=== PATIENT | female | born 1975 | race Caucasian/White ===

== ENCOUNTER 2016-07-28 15:21 | Outpatient (CLI) | payer OTHER ==
[~2016-07-28] VITALS: Ht 160 cm; Wt 80.5 kg
[2016-07-28 15:54] VITALS: BP 128/74; PULSE 70; RESP 16; Ht 160 cm; Wt 80.5 kg
[2016-07-28] MEDS ORDERED: LOSA50TA6 PO (15:54)
[2016-07-28] MEDS ORDERED: DICY10CA60 PO (15:54)
--- NOTE | 2016-07-28 15:55 | PN ---
Date/Time of Note Date/Time of Note DATE: 07/28/16 TIME: 15:55 Outpatient Progress Note Chief Complaint Abdominal pain/hypertension/hyperlipidemia/kidney stones/fibroid uterus HPI Abdominal pain/patient was recently admitted with abdominal pain, patient pain [id number], very minimal, no nausea vomiting, reduce with Bentyl, no fever or chill, no mucus in the stool, no diarrhea, no constipation, Hypertension/no headache or dizziness, no lightheadedness, no local focal weakness, Hyperlipidemia/no xanthoma, on medication, side effect of medication, Kidney stones/history of kidney stone, no fever or chill, no blood in the urine, Uterine fibroids/patient has uterine fibroid, no bleeding, no abdominal pain, no suprapubic distention, Review of Systems Const: No Fever, no chills, no Wt. loss, no Fatigue, normal appetite, no diaphoresis. Eyes: No pain, no discharge, no redness, no visual change, no foreign body. ENT: No pain, no bleeding, no congestion, no sore throat, no dysphagia, no discharge or rhinitis. Lymph: No adenopathy, no tender nodes, no lymphedema. Resp: No SOB, no cough, no sputum, no wheezing, no chest pain. CV: No chest pain, no palpitaions, no RIVER, no PND, no edema. GI: Normal appetite, minimal abdominal pain, no nausea, no vomiting, no diarrhea , no blood, no constipation. : No frequency, no urgency, no dysuria, no hematuria, no flank pain, no discharge, no bleeding. Musc: No bone/joint pain, no back pain, no neck pain, no knee pain, no restricted ROM. Skin: No rash, no skin lesions, no erythema, no laceration, no bruising, no pruritus. Neuro: No OSULLIVAN, no dizziness, no syncope, no seizure, no focal-weakness. Endo: No polyuria, no polydypsia, no dry-skin, no temp-intolerance. Psych: No hallucinations, no depression, no anxiety, no suicidal ideation. Ext: No edema, no pain, no ulcer, no weakness. Physical Exam Vital Signs Date Time Temp Pulse Resp B/P Pulse Ox O2 Delivery O2 Flow Rate FiO2 07/28/16 15:54 98.3 70 16 128/74 98 Room Air General Appearance: A 40 year-old female who appears well-developed, well- nourished, in no acute distress. HEENT: Head normocephalic, atraumatic. Pupils equal, round, reactive to light and accommodate. Sclerae are no jaundice. Nasal turbinates pink without erythema or nasal discharge. Mucous membranes pink and moist without lesions. Oropharynx clear without any exudate or discharge. NECK: Supple. Trachea midline, No thyromegaly, No cervical lymphadenopathy, No mass, No carotid bruits, No JVD, Carotid pulses 2+ bilaterally. PULMONARY: Clear to auscultaion bilaterally, No retractions, Chest expansion symmetric bilaterally, no rales, no ronchi, no dulness on percussion. CARDIAC: Normal SI and S2, Regular rate and rythm, no murmur, gallop, or rub. GASTROINTESTINAL: Abdomen is soft, mild abdominal discomfort, generalized, Non Rigid, No distention, Positive bowel sounds x4 quadrants, Liver normal. SKIN: Warm, dry, no rash, no bruise, no echmosis, no laceration, EXTREMITIES: Bilateral lower extremities normal, no edema, no phlabitus, pulse palpable, no contracture. MUSCULOSKELETAL: Spine Normal, Non-tender, Normal range of motion, No swelling, no deformity, no clubbing, or cyanosis, the patient has no edema to bilateral lower extremities, dorsalis pedis pulses palpable bilaterally. NEUROLOGIC: The patient is awake, alert, oriented, responding to yes/no questions appropriately, moving all extremities, cranial nerve intact, normal strenght, normal power, normal coordination, normal gait. Allergies Coded Allergies: No Known Allergies (Unverified Allergy, Intermediate, 05/06/06) PMH Abdominal pain/hypertension/kidney stones/hyperlipidemia/uterine fibroid, Social Hx No smoking or drinking or drugs, Family Hx Noncontributory Assessment/Plan Impression Abdominal pain/hypertension/hyperlipidemia/kidney stone/fibroid uterus Plan Patient has abdominal pain very minimal, it says improved significantly, patient take Bentyl when necessary, no fever or chill, no vomiting or diarrhea, no abdominal distention opaque, discussed with the patient, will monitor, Patient advised to continue all other medication, including antihypertensive medication, watch for hematuria, or back pain, discussed with the patient to call immediately if there is any problem, Patient encouraged to follow with the primary care physician, Medications Home Meds Reported Medications Losartan Potassium* (Losartan Potassium*) 50 Mg Tablet, 50 MG PO DAILY, TAB 07/28/16 Dicyclomine Hcl* (Bentyl*) 10 Mg Capsule, 10 MG PO TID, CAP 07/28/16 CRISTELA GONZÁLES MD Jul 28, 2016 15:55
== END 2016-07-28 16:18 | disposition home or self-care (01) ==
LOC: DCC 15:21
PROVIDERS: ATTEND Internal Medicine
DX: R10.9 Unspecified abdominal pain (principal); I10 Essential (primary) hypertension; E78.5 Hyperlipidemia, unspecified; N20.0 Calculus of kidney; D25.9 Leiomyoma of uterus, unspecified
CPT/HCPCS: G0463

== ENCOUNTER 2016-08-11 15:31 | Outpatient (CLI) | payer OTHER ==
[~2016-08-11] VITALS: Ht 160 cm; Wt 80.5 kg
[~2016-08-11 15:31] MED LIST: DICY10CA60 PO; LOSA50TA6 PO
--- NOTE | 2016-08-11 15:43 | PN ---
Date/Time of Note Date/Time of Note DATE: 08/11/16 TIME: 15:43 Outpatient Progress Note Chief Complaint Abdomen pain/kidney stones/fibroid uterus/hypertension HPI Abdominal pain/patient has mild abdominal discomfort, mostly in epigastric region, no hematemesis or melena, no history of any heartburn, Kidney stones/patient has kidney stone, patient has moderately severe back pain , not hematuria, no frequency urgency, no fever or chill, Uterine fibroids/patient has uterine fibroid, complains of back pain, Hypertension/no headache or dizziness, no local focal weakness, no impaired vision, no chest pain, Review of Systems Const: No Fever, no chills, no Wt. loss, no Fatigue, normal appetite, no diaphoresis. Eyes: No pain, no discharge, no redness, no visual change, no foreign body. ENT: No pain, no bleeding, no congestion, no sore throat, no dysphagia, no discharge or rhinitis. Lymph: No adenopathy, no tender nodes, no lymphedema. Resp: No SOB, no cough, no sputum, no wheezing, no chest pain. CV: No chest pain, no palpitaions, no RIVER, no PND, no edema. GI: Normal appetite, mild epigastric pain, no nausea, no vomiting, no diarrhea, no blood, no constipation. : Upper and lower back pain, No frequency, no urgency, no dysuria, no hematuria, no flank pain, no discharge, no bleeding. Musc: Upper and lower back pain, no neck pain, no knee pain, no restricted ROM. Skin: No rash, no skin lesions, no erythema, no laceration, no bruising, no pruritus. Neuro: No OSULLIVAN, no dizziness, no syncope, no seizure, no focal-weakness. Endo: No polyuria, no polydypsia, no dry-skin, no temp-intolerance. Psych: No hallucinations, no depression, no anxiety, no suicidal ideation. Ext: No edema, no pain, no ulcer, no weakness. Physical Exam Vital Signs Date Time Temp Pulse Resp B/P Pulse Ox O2 Delivery O2 Flow Rate FiO2 08/11/16 15:45 98.3 87 16 137/68 97 Room Air General Appearance: A 40 year-old female who appears well-developed, well- nourished, in no acute distress. HEENT: Head normocephalic, atraumatic. Pupils equal, round, reactive to light and accommodate. Sclerae are no jaundice. Nasal turbinates pink without erythema or nasal discharge. Mucous membranes pink and moist without lesions. Oropharynx clear without any exudate or discharge. NECK: Supple. Trachea midline, No thyromegaly, No cervical lymphadenopathy, No mass, No carotid bruits, No JVD, Carotid pulses 2+ bilaterally. PULMONARY: Clear to auscultaion bilaterally, No retractions, Chest expansion symmetric bilaterally, no rales, no ronchi, no dulness on percussion. CARDIAC: Normal SI and S2, Regular rate and rythm, no murmur, gallop, or rub. GASTROINTESTINAL: Abdomen is soft, mild to moderate epigastric, Non Rigid, No distention, Positive bowel sounds x4 quadrants, Liver normal. SKIN: Warm, dry, no rash, no bruise, no echmosis., No laceration, EXTREMITIES: Bilateral lower extremities normal, no edema, no phlabitus, pulse palpable, no contracture. MUSCULOSKELETAL: Spine Normal, Non-tender patient upper and lower back discomfort,, Normal range of motion, No swelling, no deformity, no clubbing, or cyanosis, the patient has no edema to bilateral lower extremities, dorsalis pedis pulses palpable bilaterally. NEUROLOGIC: The patient is awake, alert, oriented, responding to yes/no questions appropriately, moving all extremities, cranial nerve intact, normal strenght, normal power, normal coordination, normal gait. Allergies Coded Allergies: No Known Allergies (Unverified Allergy, Intermediate, 05/06/06) PMH No change Social Hx No change Family Hx No change Assessment/Plan Impression Abdominal pain/back pain/fibroid uterus/hypertension Plan Patient has minimal epigastric discomfort, patient has more back pain, patient has history of kidney stone, no history of firm hematuria, no fever or chill, no burning on urination, Will do CBC CMP, see if any sinus symptoms infection, Patient encouraged to follow with the primary care physician, [place] 5/325 one every 6 hours when necessary for pain #30 and patient to follow with the primary care physician soon, if any severe pain to call us or go to the ER or primary care physician, Medications Home Meds Reported Medications Losartan Potassium* (Losartan Potassium*) 50 Mg Tablet, 50 MG PO DAILY, TAB 1/24/17 Dicyclomine Hcl* (Bentyl*) 10 Mg Capsule, 10 MG PO TID, CAP 07/28/16 CRISTELA GONZÁLES MD Aug 11, 2016 15:43
[2016-08-11 15:45] VITALS: BP 137/68; PULSE 87; RESP 16; Ht 160 cm; Wt 80.5 kg
== END 2016-08-11 16:46 | disposition home or self-care (01) ==
LOC: DCC 15:31
PROVIDERS: ATTEND Internal Medicine
DX: R10.9 Unspecified abdominal pain (principal); M54.9 Dorsalgia, unspecified; D25.9 Leiomyoma of uterus, unspecified; I10 Essential (primary) hypertension
CPT/HCPCS: G0463

== ENCOUNTER 2016-12-13 23:48 | Emergency (ER) | payer OTHER ==
[~2016-12-13] VITALS: Ht 167.6 cm; Wt 86.5 kg
[2016-12-14] VITALS: Ht 167.6 cm; Wt 86.5 kg
--- NOTE | 2016-12-14 00:40 | ERD ---
ER Documentation Chief Complaint Date/Time DATE: 12/14/16 TIME: 00:39 Chief Complaint back pain and burn when pee x 1 day. +hematuria, hx of kidney stone HPI 41-year-old female presents here in emergency department for complaints of lower back pain and burning sensation upon urination that started to become also have hematuria. Patient has history of renal stones, was able to pass it without any difficulty. Patient denies any fever or chills. Patient denies any nausea or vomiting. Patient denies any trauma in the back. Patient did not take any medications to help with symptoms. ROS All systems reviewed and are negative except as per history of present illness. Medications Home Meds Active Scripts Ibuprofen* (Motrin*) 600 Mg Tab, 600 MG PO Q6H Y for PAIN AND OR ELEVATED TEMP, #30 TAB Prov:HELADIO HUNTER [employer] 12/14/16 Phenazopyridine Hcl* (Pyridium*) 200 Mg Tab, 200 MG PO TID Y for URINARY PAIN, # 6 TAB Prov:HELADIO HUNTER [employer] 12/14/16 Ciprofloxacin Hcl* (Ciprofloxacin Hcl*) 500 Mg Tablet, 500 MG PO BID for 10 Days , TAB Prov:HELADIO HUTNER [employer] 12/14/16 Reported Medications Losartan Potassium* (Losartan Potassium*) 50 Mg Tablet, 50 MG PO DAILY, TAB 07/28/16 Dicyclomine Hcl* (Bentyl*) 10 Mg Capsule, 10 MG PO TID, CAP 07/28/16 Allergies Allergies: Coded Allergies: No Known Allergies (Unverified Allergy, Intermediate, 05/06/06) PMhx/Soc History of Surgery: Yes (HYSTERECTOMY) Anesthesia Reaction: No Hx Neurological Disorder: No Hx Respiratory Disorders: No Hx Cardiac Disorders: No Hx Miscellaneous Medical Probl: Yes (HX OF KIDNEY STONES.) Hx Alcohol Use: No Hx Substance Use: No Hx Tobacco Use: No Smoking Status: Never smoker FmHx Family History: No coronary disease, No diabetes, No other Physical Exam Vitals Vital Signs Date Time Temp Pulse Resp B/P Pulse Ox O2 Delivery O2 Flow Rate FiO2 12/14/16 03:58 98.6 86 20 159/85 98 Room Air 12/14/16 00:00 98.8 85 18 152/90 96 Physical Exam GENERAL: The patient is well developed and appropriate for usual state of health, in no apparent distress. CHEST: Clear to auscultation bilaterally. There are no rales, wheezes or rhonchi. HEART: Regular rate and rhythm. No murmurs, clicks, rubs or gallops. No S3 or S4. ABDOMEN: Soft, nontender and nondistended. Good bowel sounds. No rebound or guarding. No gross peritonitis. No gross organomegaly or masses. No Yañez sign or McBurney point tenderness. BACK: No midline or flank tenderness. EXTREMITIES: Equal pulses bilaterally. There is no peripheral clubbing, cyanosis or edema. No focal swelling or erythema. Full range of motion. Grossly neurovascularly intact. NEURO: Alert and oriented. Cranial nerves 2-12 intact. Motor strength in all 4 extremities with 5/5 strength. Sensation grossly intact. Normal speech and gait. SKIN: There is no apparent rash or petechia. The skin is warm and dry. HEMATOLOGIC AND LYMPHATIC: There is no evidence of excessive bruising or lymphedema. No gross cervical, axillary, or inguinal lymphadenopathy. Result Diagram: 12/14/16 0110 12/14/16 0110 Results 24 hrs Laboratory Tests Test 12/14/16 01:10 White Blood Count 10.410^3/ul Red Blood Count 4.4610^6/ul Hemoglobin 13.4g/dl Hematocrit 40.0% Mean Corpuscular Volume 89.7fl Mean Corpuscular Hemoglobin 30.0pg Mean Corpuscular Hemoglobin Concent 33.5g/dl Red Cell Distribution Width 12.5% Platelet Count 83555^3/UL Mean Platelet Volume 9.5fl Neutrophils % 62.9% Lymphocytes % 26.3% Monocytes % 7.9% Eosinophils % 1.9% Basophils % 0.6% Nucleated Red Blood Cells % 0.0/100WBC Neutrophils # 6.610^3/ul Lymphocytes # 2.810^3/ul Monocytes # 0.810^3/ul Eosinophils # 0.210^3/ul Basophils # 0.110^3/ul Nucleated Red Blood Cells # 0.010^3/ul Urine Color FRANCINE Urine Clarity SLIGHTLY CLOUDY Urine pH 5.0 Urine Specific [place] 1.010 Urine Ketones NEGATIVE Urine Nitrite POSITIVE Urine Bilirubin NEGATIVE Urine Urobilinogen 1.0 E.U./dL Urine Leukocyte Esterase 1+ Urine Microscopic RBC 5-10/HPF Urine Microscopic WBC 10-25/HPF Urine Squamous Epithelial Cells OCCASIONAL Urine Bacteria MANY Urine Hemoglobin 3+ Urine Glucose 0.1%% Urine Total Protein TRACE Sodium Level 146mmol/L Potassium Level 3.7mmol/L Chloride Level 108mmol/L Carbon Dioxide Level 23mmol/L Anion Gap 19 Blood Urea Nitrogen 8mg/dl Creatinine 0.61mg/dl Glucose Level 97mg/dl Calcium Level 9.8mg/dl Total Bilirubin 0.9mg/dl Direct Bilirubin 0.00mg/dl Indirect Bilirubin 0.9mg/dl Aspartate Amino Transf (AST/SGOT) 27IU/L Alanine Aminotransferase (ALT/SGPT) 58IU/L Alkaline Phosphatase 123IU/L Total Protein 7.6g/dl Albumin 5.0g/dl Globulin 2.60g/dl Albumin/Globulin Ratio 1.92 Current Medications Medications (Trade) Dose Ordered Sig/Korin Route PRN Reason Start Time Stop Time Status Last Admin Dose Admin Ceftriaxone Sodium (Rocephin) 50 ml @ 100 mls/hr ONCE ONCE IVPB 12/14/16 03:30 12/14/16 03:30 DC Ceftriaxone Sodium (Rocephin) 1 gm ONCE ONCE IM 12/14/16 03:30 12/14/16 03:31 DC 12/14/16 03:28 PROCEDURE: CT ABDOMEN/PELVIS WITHOUT CONTRAST CLINICAL INDICATION: 41-year-old female with abdominal pain. TECHNIQUE: The study was performed utilizing a [employer] VCT 64-slice CT scanner. Direct axial sections were obtained through the abdomen and pelvis without the use of intravenous contrast material. Sagittal and coronal reformations were obtained. One or more of the following dose reduction techniques were utilized: automated exposure control, adjustment of the mA and/ or kV according to patient's size or use of iterative reconstruction technique. The images were reviewed on a PACS workstation. CTD/vol = 17.4 mGy; Total Exam DLP = 1072.5 mGy-cm. COMPARISON: None. FINDINGS: The lung bases are unremarkable. There is no evidence for significant pleural effusion. The liver has a normal size and contour without focal areas of abnormal density. No intrahepatic nor extrahepatic biliary ductal dilatation is seen. The gallbladder demonstrates no wall thickening nor pericholecystic fluid. No biliary stones are evident. The pancreas is without areas of abnormal attenuation. The spleen is identified and has a normal size without abnormal density. The adrenal glands are unremarkable. The kidneys are without abnormal density. No hydroureteronephrosis nor nephroureterolithiasis is evident. The urinary bladder contains urine. There is mild retained stool within the colon without obstruction. The appendix is visualized and is without abnormal thickening or surrounding inflammatory reaction. The uterus is not visualized consistent with prior hysterectomy. Small phleboliths are seen within the pelvis. There is no significant free fluid. The aortoiliac vessels are without aneurysmal dilatation. The osseous structures are intact. IMPRESSION: 1. Mild retained stool within the colon without obstruction. 2. No CT evidence for appendicitis. 3. Status post hysterectomy. .Choco Silva MD, MD Date Time Electronically viewed and signed by .Choco Silva MD, MD on 12/14/2016 02:57 .M/ CC: HELADIO HUNTER [employer] Procedures/MDM Medical Decision Making: Patient symptoms for cystitis consistent with pyelonephritis. Outpatient management is appropriate at this time since patient is stable, no symptoms of sepsis, patient appears well and is hemodynamically stable. No symptoms of an infected stone, kidney stone, hydronephrosis. There is low suspicion for abdominal emergencies at this time. Patients abdominal exam is normal at this time. Patients radiology exam does not show any abdominal emergencies at this time. There is low suspicion for appendicitis, cholecystitis, abdominal aortic aneurysms or peritonitis at this time. There is low suspicion for sepsis. Patient appears well and is hemodynamically stable. Disposition: Home. Condition: Stable Prescription ciprofloxacin, Pyridium, ibuprofen Instructions: Patient is advised to take medications as prescribed. Patient is advised to rest, increase fluid intake and do brat diet for next 1-2 days and progress as tolerated. Patient is advised that if symptoms are worse, severe abdominal pain, uncontrolled vomiting, high fever, severe flank pain, worst signs and symptoms, to return to the emergency department immediately. Otherwise, patient can follow up with primary care doctor in 5-7 days. Departure Diagnosis: Primary Impression: Pyelonephritis Condition: Stable Patient Instructions: Pyelonephritis, Female (Adult) Additional Instructions: Patient is advised to take medications as prescribed. Patient is advised to rest, increase fluid intake and do brat diet for next 1-2 days and progress as tolerated. Patient is advised that if symptoms are worse, severe abdominal pain , uncontrolled vomiting, high fever, severe flank pain, worst signs and symptoms , to return to the emergency department immediately. Otherwise, patient can follow up with primary care doctor in 5-7 days. HELADIO HUNTER NP Dec 14, 2016 00:40
[2016-12-14 01:20] LABS: ADD SCAN DIFF NO
[2016-12-14 01:21] LABS: BASOPHIL # 0.1 10^3/ul (0.0-0.1); BASOPHILS % 0.6 % (0.0-2.0); EOSINOPHILS # 0.2 10^3/ul (0.0-0.5); EOSINOPHILS % 1.9 % (0.0-7.0); HEMOGLOBIN 13.4 g/dl (12.0-16.0); LYMPHOCYTES # 2.8 10^3/ul (0.8-2.9); LYMPHOCYTES % 26.3 % (15.0-51.0); MEAN CORPUSCULAR HGB CONC 33.5 g/dl (32.0-37.0); MEAN CORPUSCULAR VOLUME 89.7 fl (82.0-101.0); MEAN PLATELET VOLUME 9.5 fl (7.4-10.4); MONOCYTE # 0.8 10^3/ul (0.3-0.9); MONOCYTES % 7.9 % (0.0-11.0); NEUTROPHIL # 6.6 10^3/ul (1.6-7.5); NEUTROPHILS % 62.9 % (39.0-77.0); PLATELET COUNT 312 10^3/UL (140-415); RED BLOOD COUNT 4.46 10^6/ul (4.20-5.40); RED CELL DISTRIBUTION WIDTH 12.5 % (11.5-14.5); WHITE BLOOD COUNT 10.4 10^3/ul (4.8-10.8)
[2016-12-14 01:32] LABS: ADD UMIC YES; URINE BILIRUBIN (Dip) NEGATIVE (NEGATIVE); URINE BLOOD (Dip) 3+ (NEGATIVE); URINE COLOR AMBER (YELLOW); URINE KETONES (Dip) NEGATIVE (NEGATIVE); URINE LEUKOCYTE ESTERASE (Dip) 1+ (NEGATIVE); URINE NITRITE (Dip) POSITIVE (NEGATIVE); URINE TOTAL PROTEIN (Dip) TRACE (NEGATIVE); URINE UROBILINOGEN (Dip) 1.0 E.U./dL (0.1-1.0)
[2016-12-14 01:39] LABS: ALBUMIN/GLOBULIN RATIO 1.92; BACTERIA,URINE MANY; BILIRUBIN,INDIRECT 0.9 mg/dl (0-1.1); BILIRUBIN,TOTAL 0.9 mg/dl (0.2-1.3); CALCIUM 9.8 mg/dl (8.4-10.2); CREATININE 0.61 mg/dl (0.44-1.00); POTASSIUM 3.7 mmol/L (3.5-5.1); SQUAMOUS EPITHELIAL CELL,UR OCCASIONAL; TOTAL PROTEIN 7.6 g/dl (6.1-8.1)
--- NOTE | 2016-12-14 02:57 | RADRPT ---
PROCEDURE: CT ABDOMEN/PELVIS WITHOUT CONTRAST CLINICAL INDICATION: 41-year-old female with abdominal pain. TECHNIQUE: The study was performed utilizing a [employer] VCT 64-slice CT scanner. Direct axia l sections were obtained through the abdomen and pelvis without the use of intravenous contrast mate rial. Sagittal and coronal reformations were obtained. One or more of the following dose reduction t echniques were utilized: automated exposure control, adjustment of the mA and/or kV according to pat ient's size or use of iterative reconstruction technique. The images were reviewed on a PACS workst [employer]. CTD/vol = 17.4 mGy; Total Exam DLP = 1072.5 mGy-cm. COMPARISON: None. FINDINGS: The lung bases are unremarkable. There is no evidence for significant pleural effusion. The liver has a normal size and contour without focal areas of abnormal density. No intrahepatic nor extrahepa tic biliary ductal dilatation is seen. The gallbladder demonstrates no wall thickening nor perichole cystic fluid. No biliary stones are evident. The pancreas is without areas of abnormal attenuation. The spleen is identified and has a normal size without abnormal density. The adrenal glands are unr emarkable. The kidneys are without abnormal density. No hydroureteronephrosis nor nephroureterolithi asis is evident. The urinary bladder contains urine. There is mild retained stool within the colon w ithout obstruction. The appendix is visualized and is without abnormal thickening or surrounding in flammatory reaction. The uterus is not visualized consistent with prior hysterectomy. Small phlebol iths are seen within the pelvis. There is no significant free fluid. The aortoiliac vessels are without aneurysmal dilatation. The osseous structures are intact. IMPRESSION: 1. Mild retained stool within the colon without obstruction. 2. No CT evidence for appendicitis. 3. Status post hysterectomy. .Choco Silva MD, Date Time Electronically viewed and signed by .Choco Silva MD, MD on 12/14/2016 02:57 .Jamaal/
[2016-12-14] MEDS ORDERED: PHEN-538 PO (03:16)
[2016-12-14] MEDS ORDERED: IBUP-1542 PO (03:16)
[2016-12-14] MEDS ORDERED: CIPR500T4 PO (03:16)
[2016-12-14] MEDS ORDERED: CEFTRIAXONE 1 GM/50 ML (PMX) 50 ML IVPB ONE (03:30)
[2016-12-14] MEDS ORDERED: CEFTRIAXONE 1 GM INJ IM ONE (03:30)
[2016-12-14 03:58] VITALS: BP 159/85; PULSE 86; RESP 20; TEMP 98.6
== END 2016-12-14 03:59 | disposition home or self-care (01) ==
LOC: FTE 23:48
DX: N12 Tubulo-interstitial nephritis, not specified as acute or chronic (principal); R10.2 Pelvic and perineal pain
CPT/HCPCS: 36415; 74176; 80053; 81001; 85025; 96372; J0696; Z7502